=== PATIENT | female | born 1975 | race Caucasian/White ===

== ENCOUNTER 2017-10-24 21:20 | Emergency (ER) | payer BC ==
[~2017-10-24] VITALS: Ht 154.9 cm; Wt 118.4 kg
[~2017-10-24 21:20] MED LIST: Augmentin PO; Vicodin,Norco 5/325 PO
[2017-10-25] MEDS ORDERED: AMOXICILLIN500 MG PO (02:10)
[2017-10-25] MEDS ORDERED: ATIVAN0.5 MG PO (02:10)
[2017-10-25 02:49] VITALS: BP 136/94
== END 2017-10-25 02:50 | disposition home or self-care (01) ==
LOC: EME 21:20
PROC: 2Y41X5Z Packing of Nasal Region using Packing Material (ICD-10-PCS; principal; 2017-10-24)
DX: R04.0 Epistaxis (principal); F41.9 Anxiety disorder, unspecified; Z87.891 Personal history of nicotine dependence
CPT/HCPCS: 99281; 99284